=== PATIENT | female | born 1955 | race Caucasian/White ===

== ENCOUNTER 2019-07-30 09:23 | Outpatient (CLI) | payer MEDICARE, BC ==
[2019-07-30] MEDS ORDERED: GADOTERATE 7.5 MMOL/15 ML VIAL ONE (11:01)
== END 2019-07-30 23:59 | disposition home or self-care (01) ==
LOC: CFH 09:23
PROVIDERS: ATTEND Internal Medicine
DX: I25.10 Atherosclerotic heart disease of native coronary artery without angina pectoris (principal)
CPT/HCPCS: 71555; 75571; A9575; C8911